=== PATIENT | female | born 1975 | race Caucasian/White ===

== ENCOUNTER 2016-06-22 14:16 | Emergency (ER) | payer OTHER ==
[~2016-06-22] VITALS: Ht 175.3 cm; Wt 81.7 kg
[~2016-06-22 14:16] MED LIST: AMBIEN 5 MG TABL5 M1 PO; BUTALB-APAP-CA1 EACH PO; CYCLOBENZAPRINE5 MG PO; NOHOMEMEDICATIONS; NORCO 5-325 TA1 EACH PO; NORFLEX100 MG PO; OMEPRAZOLE10 MG PO; ONDANSETRON HCL4 M2 PO; OXYCODONE HCL30 MG PO; PERCOCET 5-3251 EACH PO; PHENERGAN 25 MG25 M1 PO; PROZAC20 MG PO; VICODIN 5-3001 EACH PO; XANAX 0.25 MG0.25 MG PO; ZANTAC 150MG T150 M1 PO; ZANTAC 150MG T150 MG PO; ZOFRAN ODT4 MG PO
[2016-06-22] MEDS ORDERED: MEDROL DOSPAK21 TAB PO (15:14)
[2016-06-22] MEDS ORDERED: VENTOLIN HFA 1818 GM INH (15:14)
[2016-06-22] MEDS ORDERED: TESSALON PERLE100 MG PO (15:15)
[2016-06-22 16:05] VITALS: BP 131/76
== END 2016-06-22 16:05 | disposition home or self-care (01) ==
LOC: ER 14:16
DX: J40 Bronchitis, not specified as acute or chronic (principal); J98.01 Acute bronchospasm; Z98.890 Other specified postprocedural states; Z90.710 Acquired absence of both cervix and uterus; F41.9 Anxiety disorder, unspecified; Z88.1 Allergy status to other antibiotic agents; Z88.6 Allergy status to analgesic agent; Z88.5 Allergy status to narcotic agent; Z88.2 Allergy status to sulfonamides; Z88.0 Allergy status to penicillin; Z88.8 Allergy status to other drugs, medicaments and biological substances

== ENCOUNTER 2016-11-11 10:07 | Emergency (ER) | payer OTHER ==
[~2016-11-11] VITALS: Ht 162.6 cm; Wt 68.0 kg
[~2016-11-11 10:07] MED LIST changes: +MEDROL DOSPAK21 TAB PO; +TESSALON PERLE100 MG PO; +VENTOLIN HFA 1818 GM INH
[2016-11-11 11:20] VITALS: BP 110/58
== END 2016-11-11 11:19 | disposition home or self-care (01) ==
LOC: ER 10:07
DX: S61.412A Laceration without foreign body of left hand, initial encounter (principal); F41.9 Anxiety disorder, unspecified; Z90.710 Acquired absence of both cervix and uterus; Z98.890 Other specified postprocedural states; Z88.1 Allergy status to other antibiotic agents; Z88.0 Allergy status to penicillin; Z88.2 Allergy status to sulfonamides; Z88.6 Allergy status to analgesic agent; Z88.8 Allergy status to other drugs, medicaments and biological substances; W26.8XXA Contact with other sharp object(s), not elsewhere classified, initial encounter; Y93.89 Activity, other specified; Y92.89 Other specified places as the place of occurrence of the external cause; Y99.8 Other external cause status

== ENCOUNTER 2017-05-15 19:12 | Emergency (ER) | payer OTHER ==
[~2017-05-15] VITALS: Ht 172.7 cm; Wt 79.4 kg
--- NOTE | ~2017-05-15 | EKG ---
[address] [place] [address] ELECTROCARDIOGRAM REPORT Name: LUIZ GOMEZ Room #: DEP 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 05/16/17 0751 1919 18 Dillon Good MD, FACC /EPI
[2017-05-15] MEDS ORDERED: AMBIEN 5 MG TABL5 M1 PO (19:51)
[2017-05-15 20:09] LABS: ABSOLUTE NEUTROPHILS 2.4 thou/uL (1.4-8.2); BASOPHILS 0.8 % (0.0-2.0); HEMATOCRIT 30.8 % (37.0-47.0); HEMOGLOBIN 9.8 gm/dL (12.0-15.0); LYMPHOCYTES 33.6 % (24.0-44.0); MCH 22.9 pg (26.0-34.0); MCHC 31.7 g/dL (28.0-37.0); MCV 72.1 fL (80.0-100.0); MONOCYTES 6.2 % (1.0-8.0); PLATELET COUNT 374 thou/uL (150-400); POLYS 55.4 % (36.0-66.0); RBC 4.27 mil/uL (4.20-5.00); RDW 19.2 % (10.5-14.5); WBC 4.3 thou/uL (4.0-11.0)
[2017-05-15 20:24] LABS: APTT 26.5 Seconds (24.5-32.8); D-DIMER 0.52 ug/mLFEU (0.19-0.50); PROTIME 9.8 Seconds (9.3-11.4)
[2017-05-15 20:27] LABS: ANION GAP 4 mmol/L (7-16); BUN 20 mg/dL (7-18); CALCIUM 8.4 mg/dL (8.5-10.1); CHLORIDE 107 mmol/L (98-107); CO2 28 mmol/L (21-32); GLUCOSE 96 mg/dL (74-106); POTASSIUM 3.8 mmol/L (3.5-5.1); SODIUM 139 mmol/L (136-145)
[2017-05-15 20:37] LABS: ALBUMIN 3.4 g/dL (3.4-5.0); MAGNESIUM 2.1 mg/dL (1.8-2.4); SGOT 17 U/L (15-37); SGPT 27 U/L (30-65); TOTAL BILIRUBIN < 0.1 mg/dL (<0.1-1.0); TROPONIN-I < 0.04 ng/mL (<0.06)
[2017-05-15 20:49] LABS: ANISOCYTOSIS 2+; MICROCYTES 1+; OVALOCYTES FEW
[2017-05-15 20:50] LABS: SCHISTOCYTES OCCASIONAL
== END 2017-05-15 21:34 | disposition home or self-care (01) ==
LOC: ER 19:12
PROVIDERS: Emergency Medicine
DX: R00.2 Palpitations (principal); E03.9 Hypothyroidism, unspecified; D64.9 Anemia, unspecified; R42 Dizziness and giddiness; M79.7 Fibromyalgia; F41.9 Anxiety disorder, unspecified; Z88.1 Allergy status to other antibiotic agents; Z88.0 Allergy status to penicillin; Z88.2 Allergy status to sulfonamides; Z88.6 Allergy status to analgesic agent

== ENCOUNTER 2018-01-01 19:19 | Emergency (ER) | payer OTHER ==
[~2018-01-01] VITALS: Ht 175.3 cm; Wt 78.0 kg
[2018-01-01] MEDS ORDERED: IBUPROFEN 400400 M2 PO (21:24)
[2018-01-01 21:52] VITALS: BP 116/75
== END 2018-01-01 21:53 | disposition home or self-care (01) ==
LOC: ER 19:19
DX: N90.89 Other specified noninflammatory disorders of vulva and perineum (principal); M79.7 Fibromyalgia; Z90.710 Acquired absence of both cervix and uterus; Z88.0 Allergy status to penicillin; Z88.1 Allergy status to other antibiotic agents; Z88.2 Allergy status to sulfonamides; Z88.5 Allergy status to narcotic agent; Z88.8 Allergy status to other drugs, medicaments and biological substances

== ENCOUNTER 2019-07-31 16:12 | Emergency (ER) | payer OTHER ==
[~2019-07-31] VITALS: Ht 175.3 cm; Wt 81.2 kg
[~2019-07-31 16:12] MED LIST changes: +IBUPROFEN 400400 M2 PO
[2019-07-31] MEDS ORDERED: PROBIOTIC1 EAC7 PO (16:23)
[2019-07-31] MEDS ORDERED: CRANBERRY200 MG PO (16:23)
[2019-07-31] MEDS ORDERED: ZYRTEC10 M5 PO (16:24)
[2019-07-31] MEDS ORDERED: MEDROLDOSEPACK PO (16:45)
[2019-07-31] MEDS ORDERED: PEPCID AC20 MG PO (16:45)
[2019-07-31] MEDS ORDERED: DIPHENHIST50 MG PO (16:45)
[2019-07-31 17:17] VITALS: BP 104/55
== END 2019-07-31 17:21 | disposition home or self-care (01) ==
LOC: ER 16:12
DX: T78.49XA Other allergy, initial encounter (principal); L50.9 Urticaria, unspecified; R20.0 Anesthesia of skin; M79.7 Fibromyalgia; Z79.899 Other long term (current) drug therapy; Z88.0 Allergy status to penicillin; Z88.1 Allergy status to other antibiotic agents; Z88.6 Allergy status to analgesic agent; Z88.8 Allergy status to other drugs, medicaments and biological substances; Z88.2 Allergy status to sulfonamides; Z98.51 Tubal ligation status; Z90.49 Acquired absence of other specified parts of digestive tract; Z90.89 Acquired absence of other organs; X58.XXXA Exposure to other specified factors, initial encounter

== ENCOUNTER 2019-09-13 20:31 | Emergency (ER) | payer OTHER ==
[~2019-09-13] VITALS: Ht 172.7 cm; Wt 78.0 kg
[~2019-09-13 20:31] MED LIST changes: +CRANBERRY200 MG PO; +DIPHENHIST50 MG PO; +MEDROLDOSEPACK PO; +PEPCID AC20 MG PO; +PROBIOTIC1 EAC7 PO; +ZYRTEC10 M5 PO
[2019-09-13] MEDS ORDERED: METRONIDAZOLE500 M4 PO (20:43)
[2019-09-13] MEDS ORDERED: LEVOFLOXACIN750 MG PO (20:43)
[2019-09-13] MEDS ORDERED: BUTALB-APAP-CA1 EACH PO (20:44)
[2019-09-13] MEDS ORDERED: IBU600 MG PO (21:32)
[2019-09-13 21:41] VITALS: BP 120/71
== END 2019-09-13 21:43 | disposition home or self-care (01) ==
LOC: ER 20:31
DX: S16.1XXA Strain of muscle, fascia and tendon at neck level, initial encounter (principal); F41.9 Anxiety disorder, unspecified; M79.7 Fibromyalgia; Z98.51 Tubal ligation status; Z90.710 Acquired absence of both cervix and uterus; Z88.1 Allergy status to other antibiotic agents; Z88.2 Allergy status to sulfonamides; Z88.5 Allergy status to narcotic agent; Z88.6 Allergy status to analgesic agent; V49.49XA Driver injured in collision with other motor vehicles in traffic accident, initial encounter; Y93.89 Activity, other specified; Y92.89 Other specified places as the place of occurrence of the external cause; Y99.8 Other external cause status

== ENCOUNTER 2020-09-17 13:03 | Emergency (ER) | payer OTHER ==
[~2020-09-17] VITALS: Ht 172.7 cm; Wt 82.6 kg
[~2020-09-17 13:03] MED LIST changes: +IBU600 MG PO; +LEVOFLOXACIN750 MG PO; +METRONIDAZOLE500 M4 PO
[2020-09-17 13:36] LABS: BASOPHILS 0.6 % (0.0-2.0); EOSINOPHILS 1.5 % (0.0-3.0); HEMATOCRIT 41.1 % (37.0-47.0); HEMOGLOBIN 13.5 gm/dL (12.0-15.0); LYMPHOCYTES 26.4 % (24.0-44.0); MCH 28.9 pg (26.0-34.0); MCHC 32.9 g/dL (28.0-37.0); MONOCYTES 3.8 % (1.0-8.0); PLATELET COUNT 355 thou/uL (150-400); POLYS 67.7 % (36.0-66.0); RBC 4.67 mil/uL (4.20-5.00); RDW 13.5 % (10.5-14.5); WBC 5.9 thou/uL (4.0-11.0)
[2020-09-17 13:41] LABS: ANION GAP 10 mmol/L (7-16); BUN 16 mg/dL (7-18); CALCIUM 8.7 mg/dL (8.5-10.1); CHLORIDE 105 mmol/L (98-107); CO2 26 mmol/L (21-32); CREATININE 0.8 mg/dL (0.6-1.0); GLUCOSE 98 mg/dL (74-106); POTASSIUM 3.7 mmol/L (3.5-5.1); SODIUM 141 mmol/L (136-145)
[2020-09-17 13:51] LABS: ALBUMIN 3.7 g/dL (3.4-5.0); MAGNESIUM 1.8 mg/dL (1.8-2.4); SGOT 20 U/L (15-37); SGPT 37 U/L (14-59); TOTAL BILIRUBIN 0.2 mg/dL (0.2-1.0); TOTAL PROTEIN 7.3 g/dL (6.4-8.2); TROPONIN-I <0.06 ng/mL (<0.06)
[2020-09-17 14:35] VITALS: BP 108/59
--- NOTE | 2020-09-17 15:26 | EKG ---
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: : 1975 Requested By: Toney Balderas Order Number: [id number] MD: Glynn Green Measurements Intervals [place] Rate: 99 P: 44 SD: 160 QRS: -87 QRSD: 91 T: 46 QT: 341 QTc: 438 Interpretive Statements Sinus rhythm Probable left atrial enlargement Markedly posterior QRS axis Low voltage, precordial leads Compared to ECG 05/15/2017 19:19:15 Posterior QRS axis now present Low QRS voltage now present Electronically Signed On 09-17-2020 15:26:02 CDT by Glynn Green [email or web address] <ELECTRONICALLY SIGNED> By: Glynn Green MD, [facility] 09/17/20 1526 131 10 Glynn Green MD, [facility] /EPI
== END 2020-09-17 14:35 | disposition home or self-care (01) ==
LOC: ER 13:03
PROVIDERS: Emergency Medicine
DX: R07.89 Other chest pain (principal); R00.2 Palpitations; R53.83 Other fatigue; M79.89 Other specified soft tissue disorders; M25.512 Pain in left shoulder; M79.7 Fibromyalgia; F41.9 Anxiety disorder, unspecified; Z90.711 Acquired absence of uterus with remaining cervical stump; Z98.51 Tubal ligation status; Z90.89 Acquired absence of other organs; Z79.899 Other long term (current) drug therapy; Z88.1 Allergy status to other antibiotic agents; Z88.6 Allergy status to analgesic agent; Z88.5 Allergy status to narcotic agent; Z88.0 Allergy status to penicillin

== ENCOUNTER 2020-11-06 18:44 | Emergency (ER) | payer OTHER ==
[~2020-11-06] VITALS: Ht 172.7 cm; Wt 81.7 kg
[2020-11-06] MEDS ORDERED: MEDROLDOSEPACK PO (21:08)
[2020-11-06] MEDS ORDERED: EPIPEN 2-P0.3 MG/0.3 IM (21:08)
[2020-11-06 21:19] VITALS: BP 130/57
--- NOTE | 2020-11-07 09:48 | EKG ---
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
== END 2020-11-07 01:18 | disposition home or self-care (01) ==
LOC: ER 18:44
DX: G43.909 Migraine, unspecified, not intractable, without status migrainosus (principal); F41.9 Anxiety disorder, unspecified; Z90.89 Acquired absence of other organs; Z98.51 Tubal ligation status; Z90.710 Acquired absence of both cervix and uterus; Z79.899 Other long term (current) drug therapy; Z88.6 Allergy status to analgesic agent; Z88.0 Allergy status to penicillin; Z88.5 Allergy status to narcotic agent; Z88.1 Allergy status to other antibiotic agents; Z88.2 Allergy status to sulfonamides; Z88.8 Allergy status to other drugs, medicaments and biological substances; Z88.9 Allergy status to unspecified drugs, medicaments and biological substances

== ENCOUNTER 2021-03-12 10:21 | Emergency (ER) | payer OTHER ==
[~2021-03-12] VITALS: Ht 167.6 cm; Wt 63.5 kg
[~2021-03-12 10:21] MED LIST changes: +EPIPEN 2-P0.3 MG/0.3 IM
[2021-03-12 10:52] LABS: URINE BILIRUBIN NEGATIVE (Negative); URINE BLOOD TRACE (Negative); URINE CLARITY CLOUDY; URINE COLOR YELLOW; URINE GLUCOSE-RANDOM* NEGATIVE (Negative); URINE KETONES NEGATIVE (Negative); URINE PROTEIN (DIPSTICK) 1+ (Negative); URINE SPECIFIC GRAVITY 1.025 (1.005-1.035)
[2021-03-12 11:08] LABS: URINE LEUKOCYTES-REFLEX 2+ (Negative); URINE NITRITE-REFLEX POSITIVE (Negative)
[2021-03-12 11:24] LABS: CASTS None Seen /LPF (None Seen); MUCUS >6 Heavy strn/LPF (None Seen); SQUAMOUS >10 Many /LPF (0-3)
[2021-03-12 11:25] LABS: CRYSTALS None Seen /LPF (None Seen); URINE RBC 1-2 Rare /HPF (NONE SEEN)
[2021-03-12 12:18] VITALS: BP 116/66
[2021-03-12] MEDS ORDERED: CEPHALEXIN 250250 M1 PO (12:19)
[2021-03-12] MEDS ORDERED: METHOCARBAMOL500 M2 PO (12:19)
[2021-03-12] MEDS ORDERED: ZOFRAN ODT4 MG PO (12:23)
[2021-03-12] MEDS ORDERED: MACROBID 100 M100 MG PO (12:25)
[2021-03-15] MEDS ORDERED: CIPRO500 M1 PO (07:38)
== END 2021-03-12 12:18 | disposition home or self-care (01) ==
LOC: ER 10:21
PROVIDERS: Emergency Medicine
DX: N39.0 Urinary tract infection, site not specified (principal); Z20.822 Contact with and (suspected) exposure to COVID-19; F41.9 Anxiety disorder, unspecified; Z90.89 Acquired absence of other organs; Z98.51 Tubal ligation status; Z90.710 Acquired absence of both cervix and uterus; Z79.899 Other long term (current) drug therapy; Z88.5 Allergy status to narcotic agent; Z88.0 Allergy status to penicillin; Z88.2 Allergy status to sulfonamides; Z88.1 Allergy status to other antibiotic agents; Z88.8 Allergy status to other drugs, medicaments and biological substances